=== PATIENT | male | born 1955 | race Caucasian/White ===

== ENCOUNTER 2021-07-25 04:01 | Emergency (ER) | payer MEDICAID, OTHER ==
[~2021-07-25] VITALS: Ht 167.6 cm; Wt 81.6 kg
[2021-07-25 06:28] VITALS: BP 170/81
== END 2021-07-25 06:28 | disposition home or self-care (01) ==
LOC: EDBD 04:01 → ER 04:01
DX: M25.511 Pain in right shoulder (principal); V43.52XA Car driver injured in collision with other type car in traffic accident, initial encounter; Y93.89 Activity, other specified; Y92.89 Other specified places as the place of occurrence of the external cause; Y99.8 Other external cause status
CPT/HCPCS: 73030